=== PATIENT | male | born 1955 | race Caucasian/White ===

== ENCOUNTER 2020-10-14 06:00 | Emergency (ER) | payer MEDICAID ==
[~2020-10-14] VITALS: Ht 177.8 cm; Wt 68.2 kg
[2020-10-14] MEDS ORDERED: ketorolac trometh. 30mg/ml inj. IV ONE (06:20)
[2020-10-14] MEDS ORDERED: methylnaltrexone br 12mg/0.6ml inj***SubQ only SQ ONE (06:20)
[2020-10-14] MEDS ORDERED: lactulose 20gm/30ml cup PO ONE (06:20)
[2020-10-14] MEDS ORDERED: normal saline 1000ML IV soln IVB ONE (06:20)
[2020-10-14] MEDS ORDERED: magnesium hydroxide 30ml (MOM) UD suspension PO ONE (06:20)
[2020-10-14] MEDS ORDERED: ondansetron 4mg rapidly disintigrating tab PO ONE (06:20)
[2020-10-14] MEDS ORDERED: HYDR-3973 PO (06:26)
--- NOTE | 2020-10-14 07:21 | NUR ---
Pt resting quietly with eyes closed.
--- NOTE | 2020-10-14 09:08 | NUR ---
SISTER NUMBER BRITTNI BARKER [phone] CALL FOR TEST DRILLER
[2020-10-14 09:21] VITALS: BP 135/88
== END 2020-10-14 09:50 | disposition home or self-care (01) ==
LOC: ER 06:02
DX: M25.561 Pain in right knee (principal); K59.00 Constipation, unspecified; E86.0 Dehydration; Z79.899 Other long term (current) drug therapy
CPT/HCPCS: 29505; 96361; 96372; 96374; 99284; J1885; J2212; J7030

== ENCOUNTER 2024-09-02 18:35 | Emergency (ER) | payer MEDICARE, MEDICAID ==
[~2024-09-02] VITALS: Ht 175.3 cm; Wt 60.6 kg
[2024-09-02] MEDS: ondansetron 4mg rapidly disintigrating tab PO ONE (20:35)
[2024-09-02] MEDS: HYDROcodone/acetaminophen 5mg/325mg tablet PO ONE (20:36)
[2024-09-02] MEDS ORDERED: CEPH-585 PO (20:39)
[2024-09-02] MEDS ORDERED: HYDR-3965 PO (20:39)
[2024-09-02 20:45] VITALS: BP 130/74; PULSE 86; RESP 18; TEMP 98.7; O2SAT 98
== END 2024-09-02 20:49 | disposition home or self-care (01) ==
LOC: ER 18:36
DX: S20.319A Abrasion of unspecified front wall of thorax, initial encounter (principal); M79.642 Pain in left hand; S00.211A Abrasion of right eyelid and periocular area, initial encounter; X58.XXXA Exposure to other specified factors, initial encounter; Y93.89 Activity, other specified; Y92.89 Other specified places as the place of occurrence of the external cause; Y99.8 Other external cause status
CPT/HCPCS: 29280; 71045; 73130; 99284